=== PATIENT | male | born 1945 | race Caucasian/White ===

== ENCOUNTER 2025-01-09 04:58 | Inpatient (IN) | payer MEDICARE, OTHER ==
[2025-01-09] VITALS (15 sets, daily range): BP systolic 94–141; BP diastolic 57–86; TEMP 98–98.3; O2SAT 94–100
[~2025-01-09] VITALS: Ht 160 cm; Wt 61.2 kg
[2025-01-09] MEDS ORDERED: KETAMINE HCL (500MG/10ML) 50 MG/ML VIAL ONE (05:01)
[2025-01-09] MEDS ORDERED: VANCOMYCIN 1 GM /D5W 250 ML PB IV ONE (05:10)
[2025-01-09] MEDS ORDERED: ONDANSETRON HCL/PF 4 MG/2 ML VIAL ONE (05:10)
[2025-01-09] MEDS ORDERED: CEFEPIME 1 GM VIAL ONE (05:10)
[2025-01-09] MEDS: methylPREDNISolone SOD SUCC 125 MG/2ML VIAL IV ONE (05:13)
[2025-01-09] MEDS: CEFEPIME 1 GM in IV D5W 50 ML IV ONE (05:17)
[2025-01-09] MEDS: ONDANSETRON HCL/PF 4 MG/2 ML VIAL IVP ONE (05:17)
[2025-01-09] MEDS ORDERED: hydrALAZINE HCL IV 20 MG VIAL IV ONE (05:30)
[2025-01-09 05:47] LABS: BASOPHILS # (AUTO) 0.1 K/uL (0.0-0.2); BASOPHILS % (AUTO) 0.4 % (0.0-2.0); EOSINOPHILS # (AUTO) 0.1 K/uL (0.0-0.7); EOSINOPHILS % (AUTO) 0.7 % (0.0-6.0); HEMATOCRIT 33 % (39-51); HEMOGLOBIN 10.5 g/dL (13.5-17.5); LYMPHOCYTES # (AUTO) 4.7 K/uL (0.8-4.8); LYMPHOCYTES % (AUTO) 24.8 % (20.0-44.0); MEAN CORPUSCULAR HEMOGLOBIN 31 PG (26.0-33.0); MEAN CORPUSCULAR HGB CONC 32 g/dl (31.0-36.0); MEAN CORPUSCULAR VOLUME 95 fL (80-96); MONOCYTES % (AUTO) 5.2 % (2.0-12.0); NEUTROPHILS # (AUTO) 13.1 K/uL (1.8-8.9); NEUTROPHILS % (AUTO) 68.9 % (43.0-81.0); PLATELET COUNT (AUTO) 435 K/uL (150-450); RED BLOOD CELL COUNT(AUTO) 3.43 MIL/uL (4.5-6.0); RED CELL DISTRIBUTION WIDTH 16.2 % (11.5-15.0)
[2025-01-09] MEDS: VANCOMYCIN 1 GM in IV D5W 250 ML IV ONE (05:47)
[2025-01-09 05:50] LABS: CALCIUM, SERUM 8.5 mg/dL (8.5-10.1); CARBON DIOXIDE 22 mmol/L (21-32); CHLORIDE 106 mmol/L (98-107); CREATININE 1.7 mg/dL (0.6-1.3); GLUCOSE 322 mg/dL (74-106); POTASSIUM 4.6 mmol/L (3.5-5.1); SODIUM SERUM 140 mmol/L (136-145); UREA NITROGEN, BLOOD 37 mg/dL (7-18)
[2025-01-09 05:55] LABS: ALANINE AMINOTRANSFERASE 31 U/L (12-78); ALBUMIN 2.8 g/dL (3.4-5.0); ALKALINE PHOSPHATASE 175 U/L (46-116); ASPARTATE AMINOTRANSFERASE 26 U/L (15-37); BILIRUBIN,DIRECT 0.1 mg/dL (0.0-0.2); BILIRUBIN,TOTAL 0.3 mg/dL (0.2-1.0); TOTAL PROTEIN, SERUM 7.6 g/dL (6.4-8.2)
[2025-01-09 05:57] LABS: ABG BASE EXCESS -2.5 mmol/L (-2.0-3.0); ABG PCO2 39.6 mmHg (35.0-48.0); ABG PH 7.373 (7.350-7.450); ABG PO2 222.6 mmHg (83.0-108.0); ABG TOTAL HEMOGLOBIN 9.4 G/dL (13.5-17.5); COHb 0.3 % (0.5-1.5); MetHb 0.1 % (0.0-1.5); O2Hb 98.6 % (94.0-97.0); SITE, ABG RIGHT BRACHIAL
[2025-01-09 05:58] LABS: INR 1.02 (0.91-1.10); PARTIAL THROMBOPLASTIN TIME 26.5 SEC (24.3-34.3); PROTHROMBIN TIME 10.8 SECS (9.2-11.1)
[2025-01-09 05:59] LABS: LACTIC ACID 6.4 mmol/L (0.4-2.0)
[2025-01-09] MEDS ORDERED: FUROSEMIDE 40 MG/4 ML VIAL ONE (06:00)
[2025-01-09] MEDS: FUROSEMIDE 40 MG/4 ML VIAL IV STA (06:04)
[2025-01-09] MEDS: IV NS 0.9% 1,000 ML BAG IV ONE (06:11)
[2025-01-09] MEDS ORDERED: INSU100V7 SQ (06:13)
[2025-01-09] MEDS ORDERED: AMLO-213 PO (06:13)
[2025-01-09] MEDS ORDERED: ISOS60TA72 PO (06:13)
[2025-01-09] MEDS ORDERED: ASPI-1169 PO (06:13)
[2025-01-09] MEDS ORDERED: CARV6.252 PO (06:13)
[2025-01-09] MEDS ORDERED: TICA90TA PO (06:13)
[2025-01-09] MEDS ORDERED: LOSA50TA39 PO (06:13)
[2025-01-09] MEDS ORDERED: INSU100V27 SQ (06:13)
[2025-01-09] MEDS ORDERED: DOCU100C36 PO (06:13)
[2025-01-09] MEDS ORDERED: CLON-418 PO (06:13)
[2025-01-09] MEDS ORDERED: FERR-56 PO (06:13)
[2025-01-09] MEDS ORDERED: ATOR80TA PO (06:13)
[2025-01-09] MEDS ORDERED: DIVA250T PO (06:13)
[2025-01-09] MEDS ORDERED: METF-442 PO (06:13)
[2025-01-09] MEDS ORDERED: SENN8.6T19 PO (06:13)
[2025-01-09] MEDS: IPRATROPIUM NEB FS 0.5 MG/2.5 ML AMPUL.NEB NEB ONE (06:14)
[2025-01-09] MEDS: ALBUTEROL FS 2.5 MG/0.5 ML VIAL.NEB NEB ONE (06:14)
[2025-01-09] MEDS ORDERED: ALBUTEROL FS 2.5 MG/0.5 ML VIAL.NEB ONE (06:17)
[2025-01-09] MEDS ORDERED: IPRATROPIUM NEB FS 0.5 MG/2.5 ML AMPUL.NEB ONE (06:17)
[2025-01-09] MEDS ORDERED: MORPHINE SULFATE INJ 2 MG/ML DISP.SYRIN IV PRN (06:30)
[2025-01-09] MEDS ORDERED: DEXTROSE 50%-WATER 50 ML DISP.SYRIN IV PRN (06:30)
[2025-01-09] MEDS ORDERED: Medication Not On Formulary EA (Clonidine HCl (Clonidine HCl ER) 0.1 MG) PO SCH (06:30)
[2025-01-09] MEDS ORDERED: hydrALAZINE HCL IV 20 MG VIAL IV PRN (06:30)
[2025-01-09] MEDS ORDERED: ONDANSETRON HCL/PF 4 MG/2 ML VIAL IVP PRN (06:30)
[2025-01-09 06:57] LABS: APPEARANCE,URINE BLOODY (CLEAR); COLOR,URINE RED (YELLOW)
[2025-01-09 07:00] LABS: BACTERIA,URINE Rare /HPF (None Seen); RBC,URINE TOO NUMEROUS TO COUN /HPF (0-2); SQUAMOUS EPITHELIAL CELL,UR 0-2 /HPF (None Seen); WBC,URINE 0-2 /HPF (0-3)
[2025-01-09] MEDS: BLOOD SUGAR DIAGNOSTIC 1 EACH STRIP VI SCH (07:48)
[2025-01-09] MEDS ORDERED: HEPARIN SODIUM, PORCINE 5000 UNITS/1 ML VIAL SQ SCH (09:00)
[2025-01-09] MEDS: LOSARTAN POTASSIUM 50 MG TABLET PO SCH (09:52)
[2025-01-09] MEDS: CARVEDILOL 6.25 MG TABLET PO SCH (09:52)
[2025-01-09] MEDS: ASPIRIN 81 MG TAB.CHEW PO SCH (09:52)
[2025-01-09] MEDS: FUROSEMIDE 40 MG/4 ML VIAL IV SCH (09:52)
[2025-01-09] MEDS: AMLODIPINE BESYLATE 10 MG TABLET PO SCH (09:53)
[2025-01-09] MEDS: ISOSORBIDE MONONITRATE (30MG) 30 MG TAB.SR.24H PO SCH (09:53)
[2025-01-09] MEDS: FERROUS SULFATE (325 MG) 325 MG/TAB TABLET PO SCH (09:53)
[2025-01-09] MEDS: DIVALPROEX SODIUM 250 MG TABLET.DR PO SCH (09:53)
[2025-01-09] MEDS: TICAGRELOR 90 MG TABLET PO SCH (09:54)
[2025-01-09] MEDS: HEPARIN SODIUM, PORCINE 5000 UNITS/1 ML VIAL SQ SCH (10:30)
[2025-01-09] MEDS ORDERED: CLONIDINE HCL 0.1 MG TABLET PO PRN (11:30)
[2025-01-09] MEDS: INSULIN REGULAR, HUMAN 100 UNIT/ML 3 ML VIAL SQ PRN (11:52)
[2025-01-09] MEDS: ATORVASTATIN 40 MG TABLET PO SCH (21:41)
[2025-01-09] MEDS: INSULIN GLARGINE, 100 UNIT/ML CARTRIDGE SQ SCH (21:44)
[2025-01-09 22:10] LABS: HEMOGLOBIN 7.2 g/dL (13.5-17.5)
[2025-01-10] VITALS (30 sets, daily range): BP systolic 106–160; BP diastolic 54–83; TEMP 97.1–98.6; O2SAT 93–100
[2025-01-10] MEDS: CEFEPIME 1 GM in IV D5W 50 ML IV SCH (04:42)
[2025-01-10 05:19] LABS: BASOPHILS % (AUTO) 0.2 % (0.0-2.0); HEMATOCRIT 25 % (39-51); HEMOGLOBIN 8.2 g/dL (13.5-17.5); LYMPHOCYTES # (AUTO) 1.5 K/uL (0.8-4.8); LYMPHOCYTES % (AUTO) 11.1 % (20.0-44.0); MEAN CORPUSCULAR HEMOGLOBIN 30 PG (26.0-33.0); MEAN CORPUSCULAR HGB CONC 33 g/dl (31.0-36.0); MEAN CORPUSCULAR VOLUME 90 fL (80-96); MONOCYTES # (AUTO) 0.9 K/uL (0.1-1.30); MONOCYTES % (AUTO) 6.7 % (2.0-12.0); PLATELET COUNT (AUTO) 231 K/uL (150-450); RED BLOOD CELL COUNT(AUTO) 2.73 MIL/uL (4.5-6.0); RED CELL DISTRIBUTION WIDTH 15.8 % (11.5-15.0); WHITE BLOOD COUNT (AUTO) 13.4 K/uL (4.3-11.0)
[2025-01-10 05:46] LABS: ALANINE AMINOTRANSFERASE 16 U/L (12-78); ALBUMIN 2.2 g/dL (3.4-5.0); ALKALINE PHOSPHATASE 64 U/L (46-116); ASPARTATE AMINOTRANSFERASE 14 U/L (15-37); BILIRUBIN,TOTAL 0.3 mg/dL (0.2-1.0); CALCIUM, SERUM 8.3 mg/dL (8.5-10.1); CARBON DIOXIDE 27 mmol/L (21-32); CHLORIDE 106 mmol/L (98-107); CREATININE 1.8 mg/dL (0.6-1.3); GLUCOSE 84 mg/dL (74-106); MAGNESIUM 1.9 mg/dL (1.8-2.4); NT-PRO BNP > 25000 pg/mL (0-125); PHOSPHORUS 5.2 mg/dL (2.5-4.9); POTASSIUM 4.4 mmol/L (3.5-5.1); SODIUM SERUM 142 mmol/L (136-145); TOTAL PROTEIN, SERUM 5.7 g/dL (6.4-8.2); UREA NITROGEN, BLOOD 54 mg/dL (7-18)
[2025-01-10] MEDS ORDERED: ACET-2030 PO (10:16)
[2025-01-10] MEDS ORDERED: POLY17PO4 PO (10:16)
[2025-01-10] MEDS ORDERED: NITR0.4T SL (10:16)
[2025-01-10] MEDS ORDERED: MAGN400O6 PO (10:16)
[2025-01-10] MEDS ORDERED: CLON0.1T PO (10:16)
[2025-01-10] MEDS ORDERED: ACET325T53 PO (10:16)
[2025-01-10] MEDS ORDERED: DIVA125C5 PO (10:16)
[2025-01-10] MEDS ORDERED: NA P133E RC (10:16)
[2025-01-10] MEDS ORDERED: BISA10SU11 RC (10:16)
[2025-01-10] MEDS ORDERED: VANCOMYCIN POST DIALYSIS 500MG IV PRN (17:00)
[2025-01-10] MEDS: *INSULIN REGULAR(HUMULIN R)HUM 100 UNIT/ML VIAL SQ PRN (22:10)
[2025-01-10 23:04] LABS: URINE TOTAL PROTEIN 219.8 mg/dL (0-11.9)
[2025-01-11 00:48] VITALS: BP 160/73; TEMP 97.5; O2SAT 99
[2025-01-11 04:59] VITALS: BP 145/85; TEMP 97.3; O2SAT 100
[2025-01-11 07:00] VITALS: BP 185/87; TEMP 97.7; O2SAT 100
[2025-01-11 07:47] LABS: BASOPHILS % (AUTO) 0.5 % (0.0-2.0); EOSINOPHILS # (AUTO) 0.1 K/uL (0.0-0.7); EOSINOPHILS % (AUTO) 1.2 % (0.0-6.0); HEMATOCRIT 29 % (39-51); HEMOGLOBIN 9.7 g/dL (13.5-17.5); LYMPHOCYTES # (AUTO) 1.5 K/uL (0.8-4.8); LYMPHOCYTES % (AUTO) 15.7 % (20.0-44.0); MEAN CORPUSCULAR HEMOGLOBIN 30 PG (26.0-33.0); MEAN CORPUSCULAR HGB CONC 34 g/dl (31.0-36.0); MEAN CORPUSCULAR VOLUME 88 fL (80-96); MONOCYTES # (AUTO) 0.7 K/uL (0.1-1.30); NEUTROPHILS # (AUTO) 6.9 K/uL (1.8-8.9); NEUTROPHILS % (AUTO) 74.6 % (43.0-81.0); PLATELET COUNT (AUTO) 227 K/uL (150-450); RED BLOOD CELL COUNT(AUTO) 3.24 MIL/uL (4.5-6.0); RED CELL DISTRIBUTION WIDTH 15.8 % (11.5-15.0); WHITE BLOOD COUNT (AUTO) 9.3 K/uL (4.3-11.0)
[2025-01-11 09:41] LABS: ALBUMIN 2.2 g/dL (3.4-5.0); BILIRUBIN,TOTAL 0.4 mg/dL (0.2-1.0); CALCIUM, SERUM 8.3 mg/dL (8.5-10.1); CREATININE 1.8 mg/dL (0.6-1.3); MAGNESIUM 1.9 mg/dL (1.8-2.4); POTASSIUM 3.8 mmol/L (3.5-5.1)
[2025-01-11 11:30] VITALS: BP 146/79; TEMP 98.6; O2SAT 99
[2025-01-11 16:00] VITALS: BP 145/72; TEMP 97.5; O2SAT 100
[2025-01-11 20:00] VITALS: BP 145/73; TEMP 98.1; O2SAT 96
[2025-01-11] MEDS: ACETAMINOPHEN 325 MG TABLET PO PRN (22:17)
[2025-01-12 07:26] LABS: CALCIUM, SERUM 8.1 mg/dL (8.5-10.1); CREATININE 1.9 mg/dL (0.6-1.3); POTASSIUM 3.6 mmol/L (3.5-5.1)
[2025-01-12 08:00] VITALS: BP 151/69; TEMP 97.7; O2SAT 100
[2025-01-12] MEDS ORDERED: FURO-144 PO (08:44)
[2025-01-12 16:00] VITALS: BP 134/74; TEMP 98.1; O2SAT 100
== END 2025-01-12 19:15 | DRG 280 ==
LOC: ER 05:03 → INTOOBSV 05:44 → ICU 05:44 → OBSVTOIN 05:44 → TELE 01-10 18:44 → UNDODISOB 01-12 13:40 → MED 01-12 13:40
PROVIDERS: ADMIT Internal Medicine; ATTEND Nurse Practitioner Family
PROC: 5A09357 Assistance with Respiratory Ventilation, Less than 24 Consecutive Hours, Continuous Positive Airway Pressure (ICD-10-PCS; 2025-01-09)
PROC: 30233N1 Transfusion of Nonautologous Red Blood Cells into Peripheral Vein, Percutaneous Approach (ICD-10-PCS; principal; 2025-01-10)
DX: I13.0 Hypertensive heart and chronic kidney disease with heart failure and stage 1 through stage 4 chronic kidney disease, or unspecified chronic kidney disease (principal); I50.43 Acute on chronic combined systolic (congestive) and diastolic (congestive) heart failure; I21.A1 Myocardial infarction type 2; J96.01 Acute respiratory failure with hypoxia; E44.1 Mild protein-calorie malnutrition; I31.39 Other pericardial effusion (noninflammatory); E87.20 Acidosis, unspecified; N17.9 Acute kidney failure, unspecified; N18.9 Chronic kidney disease, unspecified; E11.22 Type 2 diabetes mellitus with diabetic chronic kidney disease; Z79.84 Long term (current) use of oral hypoglycemic drugs; Z79.4 Long term (current) use of insulin; Z79.899 Other long term (current) drug therapy; Z68.23 Body mass index [BMI] 23.0-23.9, adult; I25.10 Atherosclerotic heart disease of native coronary artery without angina pectoris; Z95.5 Presence of coronary angioplasty implant and graft; R31.0 Gross hematuria; N25.0 Renal osteodystrophy; Z86.73 Personal history of transient ischemic attack (TIA), and cerebral infarction without residual deficits; D63.1 Anemia in chronic kidney disease; E78.5 Hyperlipidemia, unspecified; E88.09 Other disorders of plasma-protein metabolism, not elsewhere classified
CPT/HCPCS: 36415; 36600; 71045-TC; 71250-TC; 80048-TC; 80053-TC; 80076-TC; 80202-TC; 81001; 82570-TC; 82803-TC; 82962-TC; 83605-TC; 83735-TC; 83880; 84100-TC; 84300-TC; 84484-TC; 85025-TC; 85027-TC; 85730-TC; 86850-TC; 87040-TC; 87081-TC; 87086-TC; 93307-TC; A4223; G0378; J0692; J1815; J1938; J2405; J2919; J3370; J3490; J7050; J7060; P9016